=== PATIENT | male | born 1955 | race Caucasian/White ===

== ENCOUNTER → 2017-04-18 | Outpatient (CLI) | payer OTHER | LOC: CIMAGING 11:15 | PROVIDERS: ATTEND Family Medicine | DX: M50.31 Other cervical disc degeneration, high cervical region (principal); M50.321 Other cervical disc degeneration at C4-C5 level | CPT/HCPCS: 72052-PO ==

== ENCOUNTER → 2017-04-27 | Outpatient (CLI) | payer OTHER | LOC: FIMAGING 09:08 | PROVIDERS: ATTEND Family Medicine | DX: M50.31 Other cervical disc degeneration, high cervical region (principal); M48.02 Spinal stenosis, cervical region ==